=== PATIENT | female | born 1940 | race Caucasian/White ===

== ENCOUNTER 2024-07-01 10:29 | Emergency (ER) | payer MEDICARE, BC ==
[~2024-07-01] VITALS: Ht 154.9 cm; Wt 47.6 kg
[2024-07-01] MEDS ORDERED: AMOX/CLAVULANATE 875 MG TABLET ONE (12:50)
[2024-07-01] MEDS: AMOX/CLAVULANATE 875 MG TABLET PO ONE (12:55)
[2024-07-01] MEDS ORDERED: AMOX-430 PO (13:21)
[2024-07-01] MEDS ORDERED: GUAI120L56 PO (13:21)
[2024-07-01 13:36] VITALS: BP 128/96; TEMP 98.6; O2SAT 95
== END 2024-07-01 13:37 | disposition home or self-care (01) ==
LOC: ER 10:29
DX: R05.9 Cough, unspecified (principal); R50.9 Fever, unspecified; R07.89 Other chest pain; I10 Essential (primary) hypertension; Z88.1 Allergy status to other antibiotic agents
CPT/HCPCS: 71045-TC